=== PATIENT | male | born 1980 | race Caucasian/White ===

== ENCOUNTER 2023-05-25 16:09 | Emergency (ER) | payer OTHER, SELFPAY ==
--- NOTE | ~2023-05-25 | CT_ITS ---
EXAMINATION: CT brain wo con DATE: 05/25/2023 17:03 INDICATION: Head injury. TECHNIQUE: Computed tomography (CT) of the head was performed without intravenous contrast. The mA wa s adjusted according to patient size. Iterative reconstruction technique was employed. The dose-lengt h product was 681.00 mGy-cm. COMPARISON: None FINDINGS: There is no intracranial hemorrhage, acute infarction, or abnormal intracranial mass lesion . The ventricles are normal in size. The mastoid air cells are normal. There is mild mucosal thickeni ng in the ethmoid sinuses. The orbits are normal. IMPRESSION: 1. Normal brain. Reviewed, dictated and finalized at location E. IMPRESSION: 1. Normal brain.
--- NOTE | ~2023-05-25 | CT_ITS ---
EXAMINATION: CT facial bones wo con DATE: 05/25/2023 17:03 INDICATION: Face injury. TECHNIQUE: Computed tomography (CT) of the facial bones and maxillofacial region was performed withou t intravenous contrast. Automated exposure control and iterative reconstruction technique were employ ed. The dose-length product was 770.70 mGy-cm. COMPARISON: None. FINDINGS: There is rightward deviation of the nasal septum. There is a fracture of anterior nasal sep ofe. There is mild mucosal thickening in the ethmoid sinuses. IMPRESSION: 1. Fracture of anterior nasal septum. Reviewed, dictated and finalized at location E.
[2023-05-25 16:12] VITALS: BP 174/91; PULSE 84; RESP 18; TEMP 36.6; O2SAT 97
--- NOTE | 2023-05-25 18:00 | ED.GENADULT ---
HPI - General Adult General Chief complaint: Unspecified Stated complaint: broke nose Time Seen by Provider: 05/25/23 17:45 Source: patient Mode of arrival: ambulatory Limitations: no limitations History of Present Illness HPI narrative: This is a 43-year-old male who presents to the ED with chief complaint of facial injury occurring today just prior to arrival. Patient states he was mowing the [employer] lawn and had his head down to watch the mower when he accidentally ran into a sign. He states his face went face first into the sign. He reports subsequent pain in the right eye and nose. Denies any LOC. Denies blood thinners. Denies numbness or weakness or any other neurologic findings. Denies any further site of pain or injury. Exam Narrative: GENERAL: Well-appearing, well-nourished, and in no acute distress. HEAD: Normocephalic, atraumatic. EYES: PERRLA and EOMI. ENT: Mild periorbital bruising on the right. Moderate nasal bruising and swelling. No crepitus. No overt septal deviation. Dried blood in bilateral naris. Bleeding controlled. Mucous membranes moist. Oropharynx without tonsillar hypertrophy exudate or other lesions. NECK: Supple. No adenopathy or masses. CHEST: No respiratory distress. Clear to auscultation. No wheezes rales or rhonchi HEART: Regular rate and rhythm. No murmur heard. Normal peripheral pulses. ABDOMEN: Soft, nontender, nondistended, normal active bowel sounds. MSK: Normal range of motion. No edema. SKIN: Warm, dry, no rash. NEURO: Alert and oriented x3. No focal deficits. PSYCH: Normal mood and affect. Course Vital Signs Vital signs: Vital Signs Temperature 97.9 F 05/25/23 16:12 Pulse Rate 84 05/25/23 16:12 Respiratory Rate 18 05/25/23 16:12 Blood Pressure 174/91 H 05/25/23 16:12 Pulse Oximetry 97 05/25/23 16:12 Oxygen Delivery Room Air 05/25/23 16:12 Temperature 97.9 F 05/25/23 16:12 Pulse Rate 84 05/25/23 16:12 Respiratory Rate 18 05/25/23 16:12 Blood Pressure 174/91 H 05/25/23 16:12 Pulse Oximetry 97 05/25/23 16:12 Oxygen Delivery Room Air 05/25/23 16:12 Medical Decision Making MDM Narrative Medical decision making narrative: This is a 43-year-old male who presents to the ED with chief complaint of a facial injury. Vitals are normal. Exam reveals bruising around the nose and right periorbital area. mild tenderness in the same. Dried blood in the nares. Bleeding is controlled. CT scan of the brain is without acute findings. CT facial scan shows anterior nasal septum fracture with slight deviation to the right. No other facial bone fracture present. Patient wears a CPAP with nasal pillows at night and he is concerned about this. I called Dr. Nieto (ENT) who says that he should avoid these and wear a full mask. I discussed this with the patient and he will try to arrange getting a full mask. Dr. Nieto also advised nasal saline which I prescribed to the patient. Supportive measures for home were discussed. He is stable for discharge. He will follow-up with Dr. Nieto. Patient is understanding and agreeable with the plan. Return precautions given. Vital Signs Vital Signs: Vital Signs Temperature 97.9 F 05/25/23 16:12 Pulse Rate 84 05/25/23 16:12 Respiratory Rate 18 05/25/23 16:12 Blood Pressure 174/91 H 05/25/23 16:12 Pulse Oximetry 97 05/25/23 16:12 Oxygen Delivery Room Air 05/25/23 16:12 Temperature 97.9 F 05/25/23 16:12 Pulse Rate 84 05/25/23 16:12 Respiratory Rate 18 05/25/23 16:12 Blood Pressure 174/91 H 05/25/23 16:12 Pulse Oximetry 97 05/25/23 16:12 Oxygen Delivery Room Air 05/25/23 16:12 Discharge Plan Discharge Clinical Impression: Nasal septum fracture Patient Disposition: Home, Self-Care Condition: Stable Instructions: Antibiotic Form Additional Instructions: Your exam and CT imaging revealed evidence of a nasal septum fracture. Please follow-u
[2023-05-25 19:20] VITALS: BP 119/80; PULSE 78; RESP 20; O2SAT 96
== END 2023-05-25 19:20 | disposition home or self-care (01) ==
PROVIDERS: Emergency Provider Physician Assistant; PCP Internal Medicine Infectious Disease
DX: S02.2XXA Fracture of nasal bones, initial encounter for closed fracture (principal); W22.09XA Striking against other stationary object, initial encounter
CPT/HCPCS: 70450; 70486; 99284; A9270